=== PATIENT | male | born 1980 | race Caucasian/White ===

== ENCOUNTER 2022-04-18 18:55 | Emergency (ER) | payer OTHER ==
[~2022-04-18] VITALS: Ht 185.4 cm; Wt 151.9 kg
[2022-04-18] MEDS ORDERED: OZEMPIC1 MG/0.71 SUB-Q (22:18)
[2022-04-18] MEDS ORDERED: LEVEMIR100 UNIT/1 SUB-Q (22:19)
[2022-04-18] MEDS ORDERED: METFORMIN HCL1000 M1 PO (22:19)
[2022-04-18] MEDS ORDERED: FARXIGA10 MG PO (22:20)
[2022-04-18] MEDS ORDERED: NORVASC10 MG PO (22:20)
[2022-04-18] MEDS ORDERED: CITALOPRAM HBR20 MG PO (22:20)
[2022-04-18] MEDS ORDERED: METOPROLOL SUC100 MG PO (22:20)
[2022-04-18] MEDS ORDERED: GLIPIZIDE ER10 MG PO (22:21)
[2022-04-18] MEDS ORDERED: CHLORTHALIDONE50 MG PO (22:21)
[2022-04-18] MEDS ORDERED: COZAAR100 MG PO (22:21)
[2022-04-18] MEDS ORDERED: NYSTATIN15 GM TOP (22:23)
== END 2022-04-18 22:33 | disposition home or self-care (01) ==
LOC: ED 18:55
DX: B37.42 Candidal balanitis (principal); I10 Essential (primary) hypertension; E78.00 Pure hypercholesterolemia, unspecified; E11.9 Type 2 diabetes mellitus without complications; Z79.899 Other long term (current) drug therapy; Z79.4 Long term (current) use of insulin; Z79.84 Long term (current) use of oral hypoglycemic drugs
CPT/HCPCS: 99283

== ENCOUNTER 2025-04-08 15:34 | Emergency (ER) | payer OTHER ==
[~2025-04-08] VITALS: Ht 185.4 cm; Wt 131.5 kg
[~2025-04-08 15:34] MED LIST: CHLORTHALIDONE50 MG PO; CITALOPRAM HBR20 MG PO; COZAAR100 MG PO; FARXIGA10 MG PO; GLIPIZIDE ER10 MG PO; LEVEMIR100 UNIT/1 SUB-Q; METFORMIN HCL1000 M1 PO; METOPROLOL SUC100 MG PO; NORVASC10 MG PO; NYSTATIN15 GM TOP; OZEMPIC1 MG/0.71 SUB-Q
[2025-04-08] MEDS ORDERED: NITROGLYCERIN 0.4 MG SUBL ONE (15:53)
[2025-04-08] MEDS ORDERED: ASPIRIN 81 MG CHEW ONE ×2 (15:53→16:08)
[2025-04-08] MEDS ORDERED: TICAGRELOR 90 MG TAB ONE (15:53)
[2025-04-08] MEDS ORDERED: CLOPIDOGREL BISULFATE 75 MG TAB ONE (15:53)
[2025-04-08] MEDS ORDERED: HEPARIN SOD,PORK IN 0.45% NACL 500 ML IV ONE (15:54)
[2025-04-08] MEDS ORDERED: HEPARIN SOD,PORK IN 0.45% NACL 500 ML IV SCH (16:00)
[2025-04-08] MEDS ORDERED: CLOPIDOGREL BISULFATE 75 MG TAB PO SCH (16:00)
[2025-04-08] MEDS ORDERED: NITROGLYCERIN 0.4 MG SUBL SL PRN (16:00)
[2025-04-08] MEDS ORDERED: ASPIRIN 81 MG CHEW PO SCH (16:00)
[2025-04-08 16:03] LABS: BASOPHILS 0.5 % (0.2-1.2); EOSINOPHILS 1.9 % (0.8-7.0); LYMPHOCYTES 20.5 % (21.8-53.1); MCH 28.9 PG (25.7-32.2); MCHC 34.0 g/dL (32.3-36.5); MCV 85.1 fL (79.0-92.2); MONOCYTES 7.1 % (5.3-12.2); NEUTROPHILS 69.5 % (34.0-67.9); RBC 6.26 M/uL (4.63-6.08)
[2025-04-08 16:10] VITALS: BP 164/100
[2025-04-08 16:11] LABS: INR 0.97 (0.80-1.30); PROTIME 12.2 Sec (11.2-14.2)
[2025-04-08 16:17] LABS: ALT (SGPT) 48.0 U/L (14-59); AST (SGOT) 15.0 U/L (15-37); GLOMERULAR FILTRATION RATE,EST 46.0 mL/min (>60); PROTEIN, TOTAL 8.0 g/dL (6.4-8.2); UREA NITROGEN 39.0 mg/dL (7-18)
--- NOTE | 2025-04-09 12:59 | EKG ---
[facility] [address] [place] [address] Signed Normal sinus rhythm Minimal voltage criteria for LVH, may be normal variant ( [place] product ) Cannot rule out Anterior infarct , age undetermined Inferior injury pattern ACUTE UT / STEMI Consider right ventricular involvement in acute inferior infarct Abnormal ECG No previous ECGs available Confirmed by Cr Pablo DO ([id number]) on 04/09/2025 12:59:11 PM Electronically Signed By: CR PABLO DO 04/09/25 1259 PATIENT NAME: PRAMOD FERNANDEZ Electrocardiogram DATE OF : 76 PHYSICIAN: CR PABLO DO REPORT #: [id number] REPORT IS CONFIDENTIAL AND NOT TO BE RELEASED WITHOUT AUTHORIZATION
== END 2025-04-08 16:10 | disposition short-term general hospital (02) ==
LOC: ED 15:34
PROVIDERS: Emergency Medicine
DX: I21.3 ST elevation (STEMI) myocardial infarction of unspecified site (principal); I10 Essential (primary) hypertension; E11.9 Type 2 diabetes mellitus without complications; Z79.4 Long term (current) use of insulin; Z79.84 Long term (current) use of oral hypoglycemic drugs; Z79.899 Other long term (current) drug therapy
CPT/HCPCS: 36415; 71045; 80053; 84484; 85025; 85610; 85730; 96374; 99285-25; A9270; J1644